=== PATIENT | female | born 1980 | race Hispanic/Latino ===

== ENCOUNTER 2019-11-19 12:56 | Emergency (ER) | payer MEDICAID, OTHER ==
[2019-11-19] MEDS ORDERED: ONDANSETRON HCL 4 MG/2 ML VIAL ONE (13:30)
[2019-11-19] MEDS ORDERED: SUCRALFATE 1 GM TABLET ONE (13:30)
[2019-11-19] MEDS ORDERED: SODIUM CHLORIDE 0.9% 1000ML 1,000 ML IV ONE (13:30)
[2019-11-19] MEDS ORDERED: INSULIN HUMULIN R 100 UNIT/ML 3ML ONE (14:46)
== END 2019-11-19 17:56 | disposition home or self-care (01) ==
LOC: EDH 12:56
DX: K52.9 Noninfective gastroenteritis and colitis, unspecified (principal); R94.5 Abnormal results of liver function studies; I10 Essential (primary) hypertension; Z90.49 Acquired absence of other specified parts of digestive tract; Z87.891 Personal history of nicotine dependence
CPT/HCPCS: 36415; 76705; 80053; 80074; 80305; 81001; 82150; 82248; 82948; 83690; 85025; 96361; 96374; 96375; 99284; J1815; J2405; J7030

== ENCOUNTER 2021-06-20 10:39 | Emergency (ER) | payer MEDICAID ==
[~2021-06-20] VITALS: Ht 160 cm; Wt 101.6 kg
[2021-06-20 12:15] VITALS: BP 126/72
== END 2021-06-20 12:34 | disposition home or self-care (01) ==
LOC: EDH 10:39
DX: U07.1 COVID-19 (principal); E10.9 Type 1 diabetes mellitus without complications; Z90.49 Acquired absence of other specified parts of digestive tract
CPT/HCPCS: 87635; 87804 ×2; 99283; C9803